=== PATIENT | male | born 1980 | race African-American/Black ===

== ENCOUNTER 2024-10-12 14:33 | Emergency (ER) | payer BC, SELFPAY ==
--- NOTE | ~2024-10-12 | XR_ITS ---
HISTORY: pain for 1 month, bilateral thumbs, injury COMPARISON: None TECHNIQUE: 2 views of the left first digit were performed. FINDINGS: No acute or subacute fracture. Joint spaces are preserved and alignment is maintained. Soft tissues are unremarkable without foreign body or significant calcification. Age-appropriate mineralization. IMPRESSION: No acute fracture, as detailed above. Reviewed, dictated and finalized at location A.
--- NOTE | ~2024-10-12 | XR_ITS ---
HISTORY: pain for 1 month to bilateral thumbs, injury COMPARISON: None TECHNIQUE: 2 views of the right first digit were performed. FINDINGS: No acute or subacute fracture. Joint spaces are preserved and alignment is maintained. Soft tissues are unremarkable without foreign body or significant calcification. Age-appropriate mineralization. IMPRESSION: No acute fracture Reviewed, dictated and finalized at location A. IMPRESSION: No acute fracture
[2024-10-12 14:47] VITALS: BP 115/68; PULSE 71; RESP 16; TEMP 36.4; O2SAT 99
--- NOTE | 2024-10-12 15:16 | ED.UPPEXIN ---
HPI - Extremity Injury (Upper) General Chief Complaint: Extremity Injury, Upper Stated Complaint: both thumbs painful Time Seen by Provider: 10/12/24 15:16 Source: patient Mode of arrival: ambulatory Limitations: no limitations History of Present Illness HPI narrative: 44 yo M presents with c/o pain to both thumbs for 1 month. Pt was moving a stove and the stove was falling backwards and caused both thumbs to hyperextend. Saw his PCP who put in outpatient orders for thumb xrs but per pt the orders are . 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 Is havinb trouble holding camera due to thumb pain. pt requesting x-rays. All systems reviewed and negative except as noted above. Related Data Allergies Allergy/AdvReac Type Severity Reaction Status Date / Time hydrocodone Allergy Severe Rash Verified 10/12/24 15:19 Review of Systems Review of Systems: CONSTITUTIONAL: Denies fever, chills, or sweats. EYES: Denies visual changes, redness, or discharge. ENT: Denies rhinorrhea, congestion, sore throat, or otalgia. CARDIOVASCULAR: Denies chest pain, palpitations, or edema. RESPIRATORY: Denies cough or dyspnea. GASTROINTESTINAL: Denies abdominal pain, nausea, vomiting, or diarrhea. GENITOURINARY: Denies dysuria or hematuria. SKIN: Denies rash or itching. MUSCULOSKELETAL: Denies back pain, joint pain, or myalgia. reports pain to bilateral thumbs NEUROLOGIC: Denies headache, numbness, or weakness. PSYCHIATRIC: Denies anxiety or depression. All other systems reviewed are negative, except as documented in HPI. PMFSH Comments At time of signature, agree with nursing past medical, surgical, social and family history. There is no relevant family history pertinent to the presenting complaint. Exam Narrative: GENERAL: This is a well-nourished, well-developed patient, in no apparent distress. HEAD: normocephalic, atraumatic. EYES: PERRL. Sclera clear/white. Vision is grossly intact. EARS: External ears normal NOSE: External nose normal NECK: Neck supple, non-tender without lymphadenopathy, masses or thyromegaly. CARDIOVASCULAR: Regular rate and rhythm without murmurs, gallops, or rubs. RESPIRATORY: Clear to auscultation. Breath sounds equal bilaterally. No wheezes, rales, or rhonchi. SKIN: warm, Dry, intact with no suspicious lesions or rash, good texture and turgor. NEURO: awake, alert, and oriented to person, place and time. There were no obvious focal neurologic abnormalities. EXTREMITIES: tenderness to bilateral thenar eminence/1st metacarpal. ROM intact. No swelling or deformity Course Course Level of Care: [facility] [place] Visit Vital Signs Vital signs: Vital Signs Temperature 36.4 C 10/12/24 14:47 Pulse Rate 71 10/12/24 14:47 Respiratory Rate 16 10/12/24 14:47 Blood Pressure 115/68 10/12/24 14:47 Pulse Oximetry 99 10/12/24 14:47 Oxygen Delivery Room Air 10/12/24 14:47 Temperature 36.4 C 10/12/24 14:47 Pulse Rate 71 10/12/24 14:47 Respiratory Rate 16 10/12/24 14:47 Blood Pressure 115/68 10/12/24 14:47 Pulse Oximetry 99 10/12/24 14:47 Oxygen Delivery Room Air 10/12/24 14:47 reviewed MDM - Extremity Injury (Upper) MDM Narrative Medical decision making narrative: unable to complete x-rays at [place] location due to a radiology machine not working. pt sent to [facility]. Report given to WYATT Frausto and LORIE Loo. Patient agrees to plan of care. Please be advised this is a medical document. It is intended for [id number] communication. It is written in medical language and may contain unfamiliar abbreviations or verbiage. Medical documents are intended to carry relevant information, facts as evident, and the clinical opinion of the practitioner at the time of the encounter. This report may have been done utilizing a voice recognition system. Attempts have been made to correct errors. However, there may be uncorrected grammatical, spelling, and recognition errors present. The file time of this note does not necessarily represent the time of service. Imaging Data My impression: Agree with radiologist Radiologist's impression: HISTORY: pain for 1 month to bilateral thumbs, injury COMPARISON: None TECHNIQUE: 2 views of the right first digit were performed. FINDINGS: No acute or subacute fracture. Joint spaces are preserved and alignment is maintained. Soft tissues are unremarkable without foreign body or significant calcification. Age-appropriate mineralization. IMPRESSION: No acute fracture Discharge Plan Discharge Clinical Impression: Thumb tendonitis Patient Disposition: Home, Self-Care Condition: Stable Instructions: Tendinitis (ED) Additional Instructions: the x-ray of both the your thumbs was normal. Take ibuprofen every 6-8 hours as needed for pain. Avoid activities that increase pain to your thumbs such as texting. Follow-up with primary care physician for further evaluation of your pain. Patient Language: Kiswahili Prescriptions: New ibuprofen 600 mg tablet 600 mg PO Q6H PRN (Reason: pain) Qty: 30 0RF methylprednisolone [Medrol (Xavier)] 4 mg tablets,dose pack See Rx Instructions PO .COMPLEX Qty: 21 0RF Rx Instructions: orally per package directions Follow-up/Referrals: PHYSICIAN NOT ON STAFF,NONSTAFF [Primary Care Provider] - Time of Disposition: 18:12
== END 2024-10-12 18:15 | disposition home or self-care (01) ==
PROVIDERS: Emergency Provider Nurse Practitioner Family
DX: M77.9 Enthesopathy, unspecified (principal)
CPT/HCPCS: 73140; 99214; G0463